=== PATIENT | male | born 1965 | race African-American/Black ===

== ENCOUNTER 2018-10-06 10:47 | Emergency (ER) | payer MEDICAID ==
[~2018-10-06] VITALS: Ht 172.7 cm; Wt 68.0 kg
[2018-10-06] MEDS ORDERED: LEVETIRACETAM 1000MG/100ML 100 ML IV ONE (11:30)
[2018-10-06] MEDS ORDERED: LORAZEPAM 2MG/ML CPJ IV ONE (11:30)
[2018-10-06 12:09] LABS: BASOPHILS % 0.8 % (0.0-2.0); EOSINOPHILS % 2.4 % (0.0-5.0); HEMATOCRIT. 43.8 % (42.0-52.0); HEMOGLOBIN. 15.1 g/dL (14.0-18.0); LYMPHOCYTES % 33.4 % (20.0-50.0); MEAN CORPUSCULAR HEMOGLOBIN 34.5 pg (28.0-32.0); MEAN CORPUSCULAR VOLUME 99.9 fL (80.0-94.0); MEAN PLATELET VOLUME 7.7 fl (7.4-10.4); MONOCYTES % 6.8 % (2.0-8.0); NEUTROPHILS % 56.6 % (40.0-76.0); PLATELET 209 x1000/uL (130-400); RED BLOOD CELL COUNT 4.38 mill/uL (4.7-6.1); RED CELL DISTRIBUTION WIDTH 13.2 % (11.6-14.6)
[2018-10-06 12:12] LABS: CHLORIDE 109 mEq/L (98-107)
[2018-10-06 12:18] LABS: ETHANOL BLOOD < 10 mg/dL
[2018-10-06 12:20] LABS: INR 1.1; PROTHROMBIN TIME 11.3 sec (9.1-11.1)
[2018-10-06 15:14] LABS: CLARITY URINE CLEAR (CLEAR); COLOR URINE YELLOW (YELLOW); KETONES URINE NEGATIVE (NEGATIVE); LEUKOCYTE ESTERASE URINE NEGATIVE (NEGATIVE); NITRITE URINE NEGATIVE (NEGATIVE); OCCULT BLOOD URINE NEGATIVE (NEGATIVE); PROTEIN URINE NEGATIVE (NEGATIVE); SPECIFIC GRAVITY URINE 1.013 (1.005-1.030); UROBILINOGEN URINE 0.2 E.U./dL (0.2-1.0)
[2018-10-06 15:35] LABS: *AMPHETAMINES SCREEN URINE NEGATIVE (NEGATIVE); *BARBITURATES SCREEN URINE NEGATIVE (NEGATIVE); *BENZODIAZEPINES SCREEN URINE NEGATIVE (NEGATIVE); *COCAINE SCREEN URINE NEGATIVE (NEGATIVE)
[2018-10-06 15:36] LABS: CANNABINOID URINE SCREEN PRESUMTIVE POSITIVE (NEGATIVE); METHADONE URINE SCREEN NEGATIVE (NEGATIVE); OPIATES URINE SCREEN NEGATIVE (NEGATIVE); PHENCYCLIDINE URINE SCREEN NEGATIVE (NEGATIVE)
[2018-10-06 16:36] VITALS: BP 122/86
== END 2018-10-06 16:38 | disposition home or self-care (01) ==
LOC: ER 10:47
DX: R56.9 Unspecified convulsions (principal)
CPT/HCPCS: 36415; 70450; 71045; 80053; 80305; 81003; 85025; 85610; 93005; 96365; 96366; 96375; 99284; G0482; J1953; J2060